=== PATIENT | female | born 1990 | race Caucasian/White ===

== ENCOUNTER 2018-03-10 22:21 | Emergency (ER) | payer MEDICAID ==
[~2018-03-10] VITALS: Ht 167.6 cm; Wt 120.7 kg
[2018-03-10 22:27] VITALS: BP 160/83
[2018-03-10 23:33] LABS: CLARITY,URINE CLEAR (Clear); COLOR,URINE YELLOW (Yellow); GLUCOSE, URINE NEGATIVE (Neg); KETONES,URINE NEGATIVE (Neg); LEUKOCYTE ESTERASE ,URINE NEGATIVE (Neg); NITRITES, URINE NEGATIVE (Neg); OCCULT BLOOD,URINE TRACE-INTACT (Neg); PROTEIN,URINE NEGATIVE (Neg); UROBILINOGEN,URINE 0.2 E.U/dL (0.2-1.0)
[2018-03-10 23:49] LABS: URINE HCG NEGATIVE (NEG)
[2018-03-10 23:58] LABS: UA COLLECTION TYPE NON-SPECIFIED
[2018-03-10 23:59] LABS: MUCUS STRANDS MANY /LPF (Neg); RBC,URINE 0-2 /HPF (0-2); SQUAMOUS EPITHELIAL CELL,UR MANY /LPF (FEW); WBC,URINE 0-4 /HPF (0-4)
[2018-03-11] LABS: BACTERIA,URINE 2+ /HPF (Neg)
[2018-03-11] MEDS ORDERED: proCHLORperazine 10 MG/2 ml inj IM ONE (00:05)
[2018-03-11] MEDS ORDERED: ketorolac tromethamine 15mg/ml inj. IM ONE (00:05)
[2018-03-11] MEDS ORDERED: diphenhydrAMINE 50 mg/ml inj IM ONE (00:05)
== END 2018-03-11 00:43 | disposition home or self-care (01) ==
LOC: ER 22:22
DX: R51 Headache (principal); T43.595A Adverse effect of other antipsychotics and neuroleptics, initial encounter; F12.90 Cannabis use, unspecified, uncomplicated; Y92.89 Other specified places as the place of occurrence of the external cause
CPT/HCPCS: 81001; 81025; 96372; 99284; J0780; J1200; J1885

== ENCOUNTER 2018-11-28 06:32 | Emergency (ER) | payer MEDICAID ==
[~2018-11-28] VITALS: Ht 167.6 cm; Wt 106.0 kg
[~2018-11-28 06:32] MED LIST: NO HOME MEDS
[2018-11-28 07:27] VITALS: BP 118/68
[2018-11-28] MEDS ORDERED: ondansetron 4 MG/5 ML oral solution 5ml CUP PO ONE (07:30)
[2018-11-28] MEDS ORDERED: LORazepam 1 MG tablet PO ONE (07:30)
[2018-11-28] MEDS ORDERED: pantoprazole 40mg Tablet.DR PO ONE (07:30)
== END 2018-11-28 08:07 | disposition home or self-care (01) ==
LOC: ER 06:33
DX: M25.562 Pain in left knee (principal); R11.2 Nausea with vomiting, unspecified; F41.9 Anxiety disorder, unspecified; F31.9 Bipolar disorder, unspecified; F12.90 Cannabis use, unspecified, uncomplicated; F10.99 Alcohol use, unspecified with unspecified alcohol-induced disorder; Y90.9 Presence of alcohol in blood, level not specified
CPT/HCPCS: 73564; 99284; J2405

== ENCOUNTER 2018-12-23 22:02 | Emergency (ER) | payer MEDICAID ==
[~2018-12-23] VITALS: Ht 170.2 cm; Wt 102.5 kg
[2018-12-23 22:09] VITALS: BP 173/95
[2018-12-23] MEDS ORDERED: dexamethasone 4mg tablet PO ONE (22:45)
== END 2018-12-23 22:59 | disposition home or self-care (01) ==
LOC: ER 22:03
DX: J06.9 Acute upper respiratory infection, unspecified (principal); J30.2 Other seasonal allergic rhinitis; F12.90 Cannabis use, unspecified, uncomplicated
CPT/HCPCS: 99282; J8540

== ENCOUNTER 2019-02-13 21:03 | Emergency (ER) | payer MEDICAID ==
[~2019-02-13] VITALS: Ht 167.6 cm; Wt 104.5 kg
[2019-02-13 21:43] LABS: URINE HCG NEGATIVE (NEG)
[2019-02-13 22:09] LABS: CLARITY,URINE SLIGHTLY CLOUDY (Clear); COLOR,URINE ORANGE (Yellow); GLUCOSE, URINE NEGATIVE (Neg); KETONES,URINE TRACE mg/dl (Neg); LEUKOCYTE ESTERASE ,URINE NEGATIVE (Neg); NITRITES, URINE NEGATIVE (Neg); OCCULT BLOOD,URINE MODERATE (Neg); PH,URINE 5.5 (4.8-8.0); PROTEIN,URINE NEGATIVE (Neg); UROBILINOGEN,URINE 0.2 E.U/dL (0.2-1.0)
--- NOTE | 2019-02-13 22:09 | NUR ---
Patient resting comfortably in bed drinking water without any difficulty.
[2019-02-13 22:11] LABS: UA COLLECTION TYPE CLN CATCH MIDSTREAM
[2019-02-13 22:17] LABS: BACTERIA,URINE NONE SEEN /HPF (Neg); CAL OXALATE CRYSTALS 2+ /HPF (NEGATIVE); MUCUS STRANDS MANY /LPF (Neg); RBC,URINE 0-2 /HPF (0-2); SQUAMOUS EPITHELIAL CELL,UR FEW /LPF (FEW); WBC,URINE 0-4 /HPF (0-4)
[2019-02-13] MEDS ORDERED: ondansetron/PF 4mg/2ml inj IV ONE (22:50)
[2019-02-13] MEDS ORDERED: ondansetron 4mg rapidly disintigrating tab PO ONE (23:05)
[2019-02-13 23:13] VITALS: BP 120/55
== END 2019-02-13 23:14 | disposition home or self-care (01) ==
LOC: ER 21:04
DX: E86.0 Dehydration (principal); F41.9 Anxiety disorder, unspecified; F31.9 Bipolar disorder, unspecified; F10.99 Alcohol use, unspecified with unspecified alcohol-induced disorder; F12.90 Cannabis use, unspecified, uncomplicated; Y90.9 Presence of alcohol in blood, level not specified
CPT/HCPCS: 81001; 81025; 99283

== ENCOUNTER 2019-07-22 06:11 | Emergency (ER) | payer MEDICAID ==
[~2019-07-22] VITALS: Ht 167.6 cm; Wt 107.2 kg
[2019-07-22] MEDS ORDERED: ondansetron/PF 4mg/2ml inj IV ONE (06:20)
[2019-07-22] MEDS ORDERED: normal saline 1000ML IV soln IVB ONE (06:20)
[2019-07-22 06:38] LABS: CLARITY,URINE CLEAR (Clear); COLOR,URINE STRAW (Yellow); GLUCOSE, URINE NEGATIVE (Neg); KETONES,URINE NEGATIVE (Neg); LEUKOCYTE ESTERASE ,URINE NEGATIVE (Neg); NITRITES, URINE NEGATIVE (Neg); OCCULT BLOOD,URINE NEGATIVE (Neg); PH,URINE 6.5 (4.8-8.0); PROTEIN,URINE NEGATIVE (Neg); UROBILINOGEN,URINE 0.2 E.U/dL (0.2-1.0)
[2019-07-22 06:39] LABS: URINE HCG NEGATIVE (NEG)
[2019-07-22 06:42] LABS: UA COLLECTION TYPE CLN CATCH MIDSTREAM
[2019-07-22 07:11] LABS: BASOPHILS # (AUTO) 0.1 X10'3 (0-0.2); BASOPHILS % (AUTO) 0.7 % (0-1); EOSINOPHILS # (AUTO) 0.4 X10'3 (0-0.9); EOSINOPHILS % (AUTO) 3.9 % (0-6); HEMATOCRIT 39.7 % (35.0-45.0); HEMOGLOBIN 13.4 g/dl (12.0-16.0); LYMPHOCYTES # (AUTO) 3.1 X10'3 (1.1-4.8); LYMPHOCYTES % (AUTO) 32.9 % (21-51); MEAN CORPUSCULAR HGB CONC 33.7 g/dL (33.0-36.5); MEAN CORPUSCULAR VOLUME 89.1 FL (78-98); MEAN PLATELET VOLUME 7.2 FL (7.4-10.4); MONOCYTES # (AUTO) 0.6 X10'3 (0-0.9); MONOCYTES % (AUTO) 6.6 % (2-12); NEUTROPHILS # (AUTO) 5.2 X10'3 (1.8-7.7); NEUTROPHILS % (AUTO) 55.9 % (42-75); PLATELET COUNT 380 X10'3 (140-440); RED BLOOD COUNT 4.46 X10'6 (4.20-5.60); RED CELL DISTRIBUTION WIDTH 13.1 % (11.5-14.5); WHITE BLOOD COUNT 9.4 X10'3 (4.5-11.0)
[2019-07-22 07:30] LABS: ALANINE AMINOTRANSFERASE 24 U/L (12-78); ALBUMIN 3.2 G/DL (3.4-5.0); ALBUMIN/GLOBULIN RATIO 0.9 (1.1-1.5); ALKALINE PHOSPHATASE 73 IU/L (46-116); ANION GAP 12 (8-16); ASPARTATE AMINO TRANSFERASE 21 U/L (10-37); BILIRUBIN,TOTAL 0.1 MG/DL (0.1-1.0); BLOOD UREA NITROGEN 9 MG/DL (7-18); BUN/CREATININE RATIO 11.3 (6.6-38.0); CALCIUM 8.4 MG/DL (8.5-10.1); CHLORIDE 107 MMOL/L (99-107); GLUCOSE 94 MG/DL (70-104); LIPASE 158 U/L (73-393); POTASSIUM 4.2 MMOL/L (3.5-5.1); SODIUM 144 MMOL/L (135-145); TOTAL CARBON DIOXIDE 24.6 MMOL/L (24-32); TOTAL PROTEIN 6.8 G/DL (6.4-8.2); eGFR 86 ML/MIN
[2019-07-22 08:10] VITALS: BP 114/71
== END 2019-07-22 08:14 | disposition home or self-care (01) ==
LOC: ER 06:12
DX: K52.9 Noninfective gastroenteritis and colitis, unspecified (principal); A05.9 Bacterial foodborne intoxication, unspecified; F41.9 Anxiety disorder, unspecified; F31.9 Bipolar disorder, unspecified; F12.90 Cannabis use, unspecified, uncomplicated; Z72.89 Other problems related to lifestyle; Z91.040 Latex allergy status
CPT/HCPCS: 36415; 80053; 81003; 81025; 83690; 85025; 96361; 96374; 99283; J2405; J7030

== ENCOUNTER 2019-07-24 23:15 | Emergency (ER) | payer MEDICAID ==
[~2019-07-24] VITALS: Ht 167.6 cm; Wt 109.0 kg
[2019-07-24] MEDS ORDERED: normal saline 1000ML IV soln IVB ONE (23:25)
[2019-07-24] MEDS ORDERED: ondansetron/PF 4mg/2ml inj IV ONE (23:25)
[2019-07-24] MEDS ORDERED: morphine 4 MG/ML inj SYRINge IV PRN (23:25)
[2019-07-24 23:59] LABS: BASOPHILS % (AUTO) 0.4 % (0-1); EOSINOPHILS # (AUTO) 0.2 X10'3 (0-0.9); HEMATOCRIT 40.4 % (35.0-45.0); HEMOGLOBIN 13.7 g/dl (12.0-16.0); LYMPHOCYTES # (AUTO) 3.6 X10'3 (1.1-4.8); LYMPHOCYTES % (AUTO) 37.8 % (21-51); MEAN CORPUSCULAR HEMOGLOBIN 29.9 PG (27.0-31.0); MEAN CORPUSCULAR HGB CONC 33.8 g/dL (33.0-36.5); MEAN CORPUSCULAR VOLUME 88.5 FL (78-98); MEAN PLATELET VOLUME 6.8 FL (7.4-10.4); MONOCYTES # (AUTO) 0.6 X10'3 (0-0.9); MONOCYTES % (AUTO) 6.6 % (2-12); NEUTROPHILS # (AUTO) 5.1 X10'3 (1.8-7.7); NEUTROPHILS % (AUTO) 53.2 % (42-75); PLATELET COUNT 406 X10'3 (140-440); RED BLOOD COUNT 4.57 X10'6 (4.20-5.60); RED CELL DISTRIBUTION WIDTH 13.1 % (11.5-14.5); WHITE BLOOD COUNT 9.5 X10'3 (4.5-11.0)
[2019-07-25 00:06] LABS: URINE HCG NEGATIVE (NEG)
[2019-07-25] MEDS ORDERED: normal saline 1000ML IV soln IVB ONE (00:10)
[2019-07-25] MEDS ORDERED: ketorolac trometh. 30mg/ml inj. IV ONE (00:10)
[2019-07-25 00:14] LABS: ALANINE AMINOTRANSFERASE 27 U/L (12-78); ALBUMIN 3.8 G/DL (3.4-5.0); ALKALINE PHOSPHATASE 74 IU/L (46-116); ANION GAP 12 (8-16); ASPARTATE AMINO TRANSFERASE 23 U/L (10-37); BILIRUBIN,TOTAL 0.3 MG/DL (0.1-1.0); BLOOD UREA NITROGEN 11 MG/DL (7-18); BUN/CREATININE RATIO 13.6 (6.6-38.0); CHLORIDE 105 MMOL/L (99-107); CREATININE 0.81 MG/DL (0.40-0.90); GLUCOSE 89 MG/DL (70-104); POTASSIUM 3.7 MMOL/L (3.5-5.1); SODIUM 140 MMOL/L (135-145); TOTAL CARBON DIOXIDE 22.6 MMOL/L (24-32); TOTAL PROTEIN 7.5 G/DL (6.4-8.2); eGFR 85 ML/MIN
[2019-07-25 00:21] LABS: BETA HCG,QUANTITATIVE < 1.0 mIU/ml
[2019-07-25 00:28] LABS: CLARITY,URINE SLIGHTLY CLOUDY (Clear); COLOR,URINE YELLOW (Yellow); GLUCOSE, URINE NEGATIVE (Neg); KETONES,URINE NEGATIVE (Neg); LEUKOCYTE ESTERASE ,URINE NEGATIVE (Neg); NITRITES, URINE NEGATIVE (Neg); OCCULT BLOOD,URINE LARGE (Neg); PROTEIN,URINE TRACE mg/dl (Neg); UROBILINOGEN,URINE 0.2 E.U/dL (0.2-1.0)
[2019-07-25 00:39] LABS: UA COLLECTION TYPE CLN CATCH MIDSTREAM
[2019-07-25 00:48] LABS: BACTERIA,URINE 3+ /HPF (Neg); MUCUS STRANDS MANY /LPF (Neg); RBC,URINE 0-2 /HPF (0-2); SQUAMOUS EPITHELIAL CELL,UR MANY /LPF (FEW); WBC,URINE 0-4 /HPF (0-4)
[2019-07-25] MEDS ORDERED: KETO10TA2 PO (01:40)
[2019-07-25] MEDS ORDERED: ONDA4TAB6 PO (01:40)
[2019-07-25] MEDS ORDERED: HYDR-4353 PO (01:40)
[2019-07-25 02:00] VITALS: BP 128/90
== END 2019-07-25 02:01 | disposition home or self-care (01) ==
LOC: ER 23:16
DX: N20.0 Calculus of kidney (principal); N28.1 Cyst of kidney, acquired; R11.2 Nausea with vomiting, unspecified; F41.9 Anxiety disorder, unspecified; F31.9 Bipolar disorder, unspecified; F12.90 Cannabis use, unspecified, uncomplicated; Z91.040 Latex allergy status; Z79.899 Other long term (current) drug therapy
CPT/HCPCS: 36415; 74176; 80053; 81001; 81025; 84702; 85025; 96361; 96374; 96375; 99284; J1885; J2270; J2405; J7030; 81003

== ENCOUNTER 2019-09-25 05:08 | Emergency (ER) | payer MEDICAID ==
[~2019-09-25] VITALS: Ht 167.6 cm; Wt 110.0 kg
[~2019-09-25 05:08] MED LIST changes: +KETO10TA2 PO; +ONDA4TAB6 PO
[2019-09-25] MEDS ORDERED: ondansetron/PF 4mg/2ml inj IV ONE (05:35)
[2019-09-25] MEDS ORDERED: ketorolac trometh. 30mg/ml inj. IV ONE (05:35)
[2019-09-25] MEDS ORDERED: morphine 4 MG/ML inj SYRINge IV ONE (05:35)
[2019-09-25 05:45] LABS: BASOPHILS % (AUTO) 0.4 % (0-1); EOSINOPHILS # (AUTO) 0.4 X10'3 (0-0.9); EOSINOPHILS % (AUTO) 5.3 % (0-6); HEMATOCRIT 41.7 % (35.0-45.0); HEMOGLOBIN 14.1 g/dl (12.0-16.0); LYMPHOCYTES % (AUTO) 35.3 % (21-51); MEAN CORPUSCULAR HEMOGLOBIN 30.3 PG (27.0-31.0); MEAN CORPUSCULAR HGB CONC 33.8 g/dL (33.0-36.5); MEAN CORPUSCULAR VOLUME 89.9 FL (78-98); MONOCYTES # (AUTO) 0.6 X10'3 (0-0.9); MONOCYTES % (AUTO) 7.2 % (2-12); NEUTROPHILS # (AUTO) 4.4 X10'3 (1.8-7.7); NEUTROPHILS % (AUTO) 51.8 % (42-75); PLATELET COUNT 368 X10'3 (140-440); RED BLOOD COUNT 4.64 X10'6 (4.20-5.60); RED CELL DISTRIBUTION WIDTH 13.4 % (11.5-14.5); WHITE BLOOD COUNT 8.5 X10'3 (4.5-11.0)
[2019-09-25 05:50] LABS: COLOR,URINE YELLOW (Yellow); GLUCOSE, URINE NEGATIVE (Neg); KETONES,URINE NEGATIVE (Neg); LEUKOCYTE ESTERASE ,URINE NEGATIVE (Neg); NITRITES, URINE NEGATIVE (Neg); OCCULT BLOOD,URINE TRACE-INTACT (Neg); PROTEIN,URINE NEGATIVE (Neg); UROBILINOGEN,URINE 0.2 E.U/dL (0.2-1.0)
[2019-09-25 05:52] LABS: URINE HCG NEGATIVE (NEG)
[2019-09-25 05:56] LABS: CLARITY,URINE SLIGHTLY CLOUDY (Clear); PH,URINE 6.5 (4.8-8.0)
[2019-09-25 05:57] LABS: UA COLLECTION TYPE CLN CATCH MIDSTREAM
[2019-09-25 05:58] LABS: ALANINE AMINOTRANSFERASE 84 U/L (12-78); ALBUMIN 4.2 G/DL (3.4-5.0); ALBUMIN/GLOBULIN RATIO 1.3 (1.1-1.5); ALKALINE PHOSPHATASE 109 IU/L (46-116); ANION GAP 11 (8-16); ASPARTATE AMINO TRANSFERASE 43 U/L (10-37); BILIRUBIN,TOTAL 0.4 MG/DL (0.1-1.0); BLOOD UREA NITROGEN 9 MG/DL (7-18); CALCIUM 9.4 MG/DL (8.5-10.1); CHLORIDE 104 MMOL/L (99-107); CREATININE 0.75 MG/DL (0.40-0.90); GLUCOSE 97 MG/DL (70-104); LIPASE 92 U/L (73-393); POTASSIUM 3.8 MMOL/L (3.5-5.1); SODIUM 140 MMOL/L (135-145); TOTAL CARBON DIOXIDE 24.7 MMOL/L (24-32); TOTAL PROTEIN 7.5 G/DL (6.4-8.2); eGFR > 90 ML/MIN
[2019-09-25 06:00] LABS: RBC,URINE 0-2 /HPF (0-2); SQUAMOUS EPITHELIAL CELL,UR MANY /LPF (FEW); WBC,URINE NONE SEEN /HPF (0-4)
[2019-09-25 06:01] LABS: BACTERIA,URINE 2+ /HPF (Neg); MUCUS STRANDS FEW /LPF (Neg)
--- NOTE | 2019-09-25 06:07 | NUR ---
ULTRASOUND IN ROOM.
[2019-09-25 06:27] VITALS: BP 137/91
[2019-09-25] MEDS ORDERED: HYDR-3965 PO (06:34)
== END 2019-09-25 06:40 | disposition home or self-care (01) ==
LOC: ER 05:08
DX: N28.1 Cyst of kidney, acquired (principal); F41.9 Anxiety disorder, unspecified; F31.9 Bipolar disorder, unspecified; F12.90 Cannabis use, unspecified, uncomplicated; Z91.040 Latex allergy status; Z79.899 Other long term (current) drug therapy
CPT/HCPCS: 36415; 76700; 80053; 81001; 81025; 83690; 85025; 93005; 96374; 96375; 99285; J1885; J2270; J2405

== ENCOUNTER 2020-02-06 01:46 | Emergency (ER) | payer MEDICAID ==
[~2020-02-06] VITALS: Ht 167.6 cm; Wt 113.6 kg
[2020-02-06 01:56] VITALS: BP 171/75
[2020-02-06] MEDS ORDERED: LORazepam 2 mg/ml vial IM ONE (02:35)
== END 2020-02-06 02:54 | disposition home or self-care (01) ==
LOC: ER 01:47
DX: F41.0 Panic disorder [episodic paroxysmal anxiety] (principal); F31.9 Bipolar disorder, unspecified; F41.9 Anxiety disorder, unspecified; F12.90 Cannabis use, unspecified, uncomplicated; Z72.89 Other problems related to lifestyle; Z87.442 Personal history of urinary calculi; Z91.040 Latex allergy status; Z79.899 Other long term (current) drug therapy
CPT/HCPCS: 96372; 99283; J2060

== ENCOUNTER 2020-03-18 13:03 | Emergency (ER) | payer MEDICAID ==
[~2020-03-18] VITALS: Ht 167.6 cm; Wt 113.6 kg
[2020-03-18 13:51] LABS: BASOPHILS % (AUTO) 0.4 % (0-1); EOSINOPHILS # (AUTO) 0.3 X10'3 (0-0.9); EOSINOPHILS % (AUTO) 3.8 % (0-6); HEMATOCRIT 39.6 % (35.0-45.0); HEMOGLOBIN 13.1 g/dl (12.0-16.0); LYMPHOCYTES # (AUTO) 2.4 X10'3 (1.1-4.8); LYMPHOCYTES % (AUTO) 34.3 % (21-51); MEAN CORPUSCULAR HEMOGLOBIN 29.8 PG (27.0-31.0); MEAN CORPUSCULAR HGB CONC 33.1 g/dL (33.0-36.5); MEAN CORPUSCULAR VOLUME 90.1 FL (78-98); MEAN PLATELET VOLUME 7.1 FL (7.4-10.4); MONOCYTES # (AUTO) 0.4 X10'3 (0-0.9); MONOCYTES % (AUTO) 6.2 % (2-12); NEUTROPHILS # (AUTO) 3.9 X10'3 (1.8-7.7); NEUTROPHILS % (AUTO) 55.3 % (42-75); PLATELET COUNT 368 X10'3 (140-440); RED BLOOD COUNT 4.39 X10'6 (4.20-5.60); RED CELL DISTRIBUTION WIDTH 13.1 % (11.5-14.5); WHITE BLOOD COUNT 7.1 X10'3 (4.5-11.0)
[2020-03-18 14:02] LABS: ALANINE AMINOTRANSFERASE 23 U/L (12-78); ALBUMIN 3.3 G/DL (3.4-5.0); ALBUMIN/GLOBULIN RATIO 0.9 (1.1-1.5); ALKALINE PHOSPHATASE 71 IU/L (46-116); ANION GAP 8 (8-16); ASPARTATE AMINO TRANSFERASE 28 U/L (10-37); BILIRUBIN,TOTAL 0.3 MG/DL (0.1-1.0); BLOOD UREA NITROGEN 9 MG/DL (7-18); BUN/CREATININE RATIO 12.2 (6.6-38.0); CALCIUM 8.8 MG/DL (8.5-10.1); CHLORIDE 104 MMOL/L (99-107); CREATININE 0.74 MG/DL (0.40-0.90); GLUCOSE 92 MG/DL (70-104); SODIUM 138 MMOL/L (135-145); TOTAL CARBON DIOXIDE 26.4 MMOL/L (24-32); TOTAL PROTEIN 6.9 G/DL (6.4-8.2); eGFR > 90 ML/MIN
[2020-03-18 14:22] LABS: URINE HCG NEGATIVE (NEG)
[2020-03-18] MEDS ORDERED: ketorolac tromethamine 15mg/ml inj. IM ONE (16:15)
[2020-03-18 17:01] VITALS: BP 145/91
== END 2020-03-18 17:03 | disposition home or self-care (01) ==
LOC: ER 13:03
DX: R07.89 Other chest pain (principal); R06.02 Shortness of breath; F41.9 Anxiety disorder, unspecified; F31.9 Bipolar disorder, unspecified; F12.90 Cannabis use, unspecified, uncomplicated; Z87.442 Personal history of urinary calculi; Z72.89 Other problems related to lifestyle; Z91.040 Latex allergy status; Z79.899 Other long term (current) drug therapy
CPT/HCPCS: 36415; 71045; 80053; 81025; 85025; 85379; 93005; 99285

== ENCOUNTER 2020-05-07 16:06 | Emergency (ER) | payer MEDICAID ==
[~2020-05-07] VITALS: Ht 167.6 cm; Wt 109.1 kg
[2020-05-07 16:11] VITALS: BP 154/78
== END 2020-05-07 19:10 | disposition left against medical advice (07) ==
LOC: ER 16:07
DX: F41.9 Anxiety disorder, unspecified (principal); Z53.21 Procedure and treatment not carried out due to patient leaving prior to being seen by health care provider

== ENCOUNTER 2020-07-05 16:32 | Emergency (ER) | payer MEDICAID ==
[~2020-07-05] VITALS: Ht 167.6 cm; Wt 109.0 kg
[2020-07-05 16:41] VITALS: BP 147/67
[2020-07-05 17:16] LABS: BASOPHILS # (AUTO) 0.1 X10'3 (0-0.2); BASOPHILS % (AUTO) 0.7 % (0-1); EOSINOPHILS # (AUTO) 0.3 X10'3 (0-0.9); HEMATOCRIT 40.6 % (35.0-45.0); HEMOGLOBIN 13.5 g/dl (12.0-16.0); LYMPHOCYTES # (AUTO) 3.4 X10'3 (1.1-4.8); LYMPHOCYTES % (AUTO) 32.6 % (21-51); MEAN CORPUSCULAR HEMOGLOBIN 30.4 PG (27.0-31.0); MEAN CORPUSCULAR HGB CONC 33.2 g/dL (33.0-36.5); MEAN CORPUSCULAR VOLUME 91.6 FL (78-98); MEAN PLATELET VOLUME 7.1 FL (7.4-10.4); MONOCYTES # (AUTO) 0.6 X10'3 (0-0.9); MONOCYTES % (AUTO) 6.1 % (2-12); NEUTROPHILS # (AUTO) 6.1 X10'3 (1.8-7.7); NEUTROPHILS % (AUTO) 57.6 % (42-75); PLATELET COUNT 364 X10'3 (140-440); RED BLOOD COUNT 4.43 X10'6 (4.20-5.60); RED CELL DISTRIBUTION WIDTH 13.4 % (11.5-14.5); WHITE BLOOD COUNT 10.5 X10'3 (4.5-11.0)
[2020-07-05 17:20] LABS: URINE HCG NEGATIVE (NEG)
[2020-07-05 17:23] LABS: CLARITY,URINE SLIGHTLY CLOUDY (Clear); COLOR,URINE STRAW (Yellow); GLUCOSE, URINE NEGATIVE (Neg); KETONES,URINE NEGATIVE (Neg); LEUKOCYTE ESTERASE ,URINE NEGATIVE (Neg); NITRITES, URINE NEGATIVE (Neg); OCCULT BLOOD,URINE MODERATE (Neg); PH,URINE 6.5 (4.8-8.0); PROTEIN,URINE NEGATIVE (Neg); UROBILINOGEN,URINE 0.2 E.U/dL (0.2-1.0)
[2020-07-05 17:27] LABS: UA COLLECTION TYPE VOIDED
[2020-07-05 17:33] LABS: ALANINE AMINOTRANSFERASE 26 U/L (12-78); ALBUMIN 3.6 G/DL (3.4-5.0); ALKALINE PHOSPHATASE 74 IU/L (46-116); ANION GAP 10 (8-16); ASPARTATE AMINO TRANSFERASE 20 U/L (10-37); BILIRUBIN,TOTAL 0.2 MG/DL (0.1-1.0); BLOOD UREA NITROGEN 10 MG/DL (7-18); BUN/CREATININE RATIO 13.2 (6.6-38.0); CALCIUM 9.3 MG/DL (8.5-10.1); CHLORIDE 103 MMOL/L (99-107); CREATININE 0.76 MG/DL (0.40-0.90); GLUCOSE 85 MG/DL (70-104); LIPASE 113 U/L (73-393); POTASSIUM 3.6 MMOL/L (3.5-5.1); SODIUM 140 MMOL/L (135-145); TOTAL CARBON DIOXIDE 27.2 MMOL/L (24-32); TOTAL PROTEIN 7.3 G/DL (6.4-8.2); eGFR > 90 ML/MIN
[2020-07-05 17:38] LABS: BACTERIA,URINE 3+ /HPF (Neg); RBC,URINE 0-2 /HPF (0-2); SQUAMOUS EPITHELIAL CELL,UR MODERATE /LPF (FEW); WBC CLUMPS,URINE FEW /HPF (NEGATIVE); WBC,URINE 0-4 /HPF (0-4)
[2020-07-05 18:08] LABS: HCG SERUM QL NEGATIVE
[2020-07-05] MEDS ORDERED: morphine 4 MG/ML inj SYRINge IV ONE (18:55)
[2020-07-05] MEDS ORDERED: ketorolac trometh. 30mg/ml inj. IV ONE (18:55)
[2020-07-05] MEDS ORDERED: normal saline 1000ml 1,000 ML IV ONE (18:55)
[2020-07-05] MEDS ORDERED: ONDA4TAB6 PO (19:18)
[2020-07-05] MEDS ORDERED: HYDR-3965 PO (19:18)
[2020-07-05] MEDS ORDERED: FLO0.4C PO (19:18)
== END 2020-07-05 20:01 | disposition home or self-care (01) ==
LOC: ER 16:33
DX: N20.0 Calculus of kidney (principal); R10.31 Right lower quadrant pain; F41.9 Anxiety disorder, unspecified; F31.9 Bipolar disorder, unspecified; F12.90 Cannabis use, unspecified, uncomplicated; Z72.89 Other problems related to lifestyle; Z87.442 Personal history of urinary calculi; Z88.1 Allergy status to other antibiotic agents; Z91.040 Latex allergy status; Z79.899 Other long term (current) drug therapy
CPT/HCPCS: 36415; 74176; 80053; 81001; 81025; 83690; 84703; 85025; 87088; 96374; 96375; 99284; J1885; J2270; J7030

== ENCOUNTER 2020-07-24 09:19 | Emergency (ER) | payer MEDICAID ==
[~2020-07-24] VITALS: Ht 167.6 cm; Wt 111.4 kg
[2020-07-24] MEDS ORDERED: dexamethasone sod phosphate 10mg/ml inj IV STA (09:26)
[2020-07-24] MEDS ORDERED: metoclopramide 5 mg/ml inj IV ONE (09:30)
[2020-07-24] MEDS ORDERED: normal saline 1000ML IV soln IVB ONE (09:30)
[2020-07-24] MEDS ORDERED: ketorolac trometh. 30mg/ml inj. IV ONE (10:15)
[2020-07-24] MEDS ORDERED: LORazepam 2 mg/ml vial IV ONE (10:35)
[2020-07-24 10:59] VITALS: BP 117/74
== END 2020-07-24 11:01 | disposition home or self-care (01) ==
LOC: ER 09:19
DX: R51.9 Headache, unspecified (principal); R11.0 Nausea; F41.9 Anxiety disorder, unspecified; F31.9 Bipolar disorder, unspecified; F12.90 Cannabis use, unspecified, uncomplicated; Z72.89 Other problems related to lifestyle; Z87.442 Personal history of urinary calculi; Z88.1 Allergy status to other antibiotic agents; Z79.899 Other long term (current) drug therapy
CPT/HCPCS: 70450; 96361; 96374; 96375; 99284; J1100; J1885; J2060; J2765; J7030

== ENCOUNTER 2020-12-10 13:21 | Emergency (ER) | payer MEDICAID ==
[~2020-12-10] VITALS: Ht 162.6 cm; Wt 113.6 kg
[2020-12-10 15:52] LABS: URINE HCG NEGATIVE (NEG)
[2020-12-10 15:56] LABS: CLARITY,URINE SLIGHTLY CLOUDY (Clear); COLOR,URINE STRAW (Yellow); GLUCOSE, URINE NEGATIVE (Neg); KETONES,URINE NEGATIVE (Neg); LEUKOCYTE ESTERASE ,URINE NEGATIVE (Neg); NITRITES, URINE NEGATIVE (Neg); OCCULT BLOOD,URINE SMALL (Neg); PH,URINE 5.5 (4.8-8.0); PROTEIN,URINE NEGATIVE (Neg); UROBILINOGEN,URINE 0.2 E.U/dL (0.2-1.0)
[2020-12-10 15:57] LABS: UA COLLECTION TYPE CLN CATCH MIDSTREAM
[2020-12-10 16:07] LABS: MUCUS STRANDS MODERATE /LPF (Neg); SQUAMOUS EPITHELIAL CELL,UR MANY /LPF (FEW)
[2020-12-10 16:12] LABS: BACTERIA,URINE 2+ /HPF (Neg); RBC,URINE 0-2 /HPF (0-2)
[2020-12-10] MEDS ORDERED: NITR100C PO (16:26)
[2020-12-10 17:00] VITALS: BP 148/90
== END 2020-12-10 17:00 | disposition home or self-care (01) ==
LOC: ER 13:21
DX: N30.00 Acute cystitis without hematuria (principal); R42 Dizziness and giddiness; R11.0 Nausea; R06.02 Shortness of breath; F31.9 Bipolar disorder, unspecified; F12.90 Cannabis use, unspecified, uncomplicated; Z87.442 Personal history of urinary calculi; Z72.89 Other problems related to lifestyle; Z88.8 Allergy status to other drugs, medicaments and biological substances; Z91.040 Latex allergy status; Z79.899 Other long term (current) drug therapy
CPT/HCPCS: 81001; 81025; 93005; 99284

== ENCOUNTER 2020-12-14 15:23 | Emergency (ER) | payer MEDICAID ==
[~2020-12-14] VITALS: Ht 167.6 cm; Wt 113.6 kg
[~2020-12-14 15:23] MED LIST changes: +NITR100C PO
[2020-12-14 15:55] VITALS: BP 127/89
[2020-12-14 16:21] LABS: URINE HCG NEGATIVE (NEG)
[2020-12-14 16:26] LABS: CLARITY,URINE SLIGHTLY CLOUDY (Clear); COLOR,URINE YELLOW (Yellow); GLUCOSE, URINE NEGATIVE (Neg); KETONES,URINE NEGATIVE (Neg); LEUKOCYTE ESTERASE ,URINE NEGATIVE (Neg); NITRITES, URINE NEGATIVE (Neg); OCCULT BLOOD,URINE MODERATE (Neg); PH,URINE 6.5 (4.8-8.0); PROTEIN,URINE NEGATIVE (Neg); UROBILINOGEN,URINE 0.2 E.U/dL (0.2-1.0)
[2020-12-14 16:28] LABS: UA COLLECTION TYPE CLN CATCH MIDSTREAM
[2020-12-14 16:32] LABS: BACTERIA,URINE 1+ /HPF (Neg); MUCUS STRANDS NONE SEEN /LPF (Neg); RBC,URINE 0-2 /HPF (0-2); SQUAMOUS EPITHELIAL CELL,UR MODERATE /LPF (FEW); WBC,URINE 0-4 /HPF (0-4)
[2020-12-14] MEDS ORDERED: ketorolac tromethamine 15mg/ml inj. IM ONE (16:55)
[2020-12-14] MEDS ORDERED: CefTRIAXone 1000mg IM Kit (w/lidocaine diluent) IM ONE (16:55)
[2020-12-14] MEDS ORDERED: CEPH-585 PO (16:57)
== END 2020-12-14 18:16 | disposition home or self-care (01) ==
LOC: ER 15:24
DX: N10 Acute pyelonephritis (principal); R11.10 Vomiting, unspecified; R10.84 Generalized abdominal pain; F41.9 Anxiety disorder, unspecified; F31.9 Bipolar disorder, unspecified; F12.90 Cannabis use, unspecified, uncomplicated; Z87.442 Personal history of urinary calculi; Z72.89 Other problems related to lifestyle; Z88.1 Allergy status to other antibiotic agents; Z79.899 Other long term (current) drug therapy
CPT/HCPCS: 76770; 81001; 81025; 96372; 99284; J0696; J1885

== ENCOUNTER 2020-12-17 13:35 | Emergency (ER) | payer MEDICAID ==
[~2020-12-17] VITALS: Ht 167.6 cm; Wt 114.4 kg
[~2020-12-17 13:35] MED LIST changes: +CEPH-585 PO
[2020-12-17 14:30] LABS: BASOPHILS % (AUTO) 0.3 % (0-1); EOSINOPHILS # (AUTO) 0.2 X10'3 (0-0.9); EOSINOPHILS % (AUTO) 2.1 % (0-6); HEMATOCRIT 41.2 % (35.0-45.0); HEMOGLOBIN 13.6 g/dl (12.0-16.0); LYMPHOCYTES # (AUTO) 2.5 X10'3 (1.1-4.8); LYMPHOCYTES % (AUTO) 30.9 % (21-51); MEAN CORPUSCULAR HEMOGLOBIN 30.2 PG (27.0-31.0); MEAN CORPUSCULAR VOLUME 91.5 FL (78-98); MEAN PLATELET VOLUME 7.1 FL (7.4-10.4); MONOCYTES # (AUTO) 0.5 X10'3 (0-0.9); NEUTROPHILS % (AUTO) 60.7 % (42-75); PLATELET COUNT 349 X10'3 (140-440); RED CELL DISTRIBUTION WIDTH 13.2 % (11.5-14.5); WHITE BLOOD COUNT 8.2 X10'3 (4.5-11.0)
[2020-12-17 14:40] LABS: PARTIAL THROMBOPLASTIN TIME 26 SECONDS (22-32)
[2020-12-17 14:43] LABS: ALANINE AMINOTRANSFERASE 31 U/L (12-78); ALBUMIN 3.7 G/DL (3.4-5.0); ALKALINE PHOSPHATASE 84 IU/L (46-116); ANION GAP 10 (8-16); ASPARTATE AMINO TRANSFERASE 22 U/L (10-37); BILIRUBIN,TOTAL 0.4 MG/DL (0.1-1.0); BLOOD UREA NITROGEN 11 MG/DL (7-18); BUN/CREATININE RATIO 14.9 (6.6-38.0); CALCIUM 8.7 MG/DL (8.5-10.1); CHLORIDE 103 MMOL/L (99-107); CREATININE 0.74 MG/DL (0.40-0.90); GLUCOSE 85 MG/DL (70-104); LIPASE 57 U/L (73-393); MAGNESIUM 2.1 MG/DL (1.5-2.4); SODIUM 139 MMOL/L (135-145); TOTAL CARBON DIOXIDE 26.1 MMOL/L (24-32); TOTAL PROTEIN 7.5 G/DL (6.4-8.2); eGFR > 90 ML/MIN
--- NOTE | 2020-12-17 18:41 | NUR ---
PT STATES AMOUNT OF BLOOD UNKNOWN BUT STATES DIZZINESS AND NAUSEA TODAY
--- NOTE | 2020-12-17 18:41 | NUR ---
PT STATES SHE WOKE UP AT 4 AM SCREAMING WITH BRIGHT RED BLOOD POORING OUT VAGINA. PT STATES SHE HAD DIAGNOSIS OF OVARIAN CYST RECENTLY WELL KIDNEY INFECTION TO RIGHT SIDE.
[2020-12-17 19:05] LABS: ETHANOL < 0.010 GM/DL (0.0-0.010)
[2020-12-17 19:25] LABS: URINE HCG NEGATIVE (NEG)
[2020-12-17 19:28] LABS: CLARITY,URINE SLIGHTLY CLOUDY (Clear); COLOR,URINE YELLOW (Yellow); GLUCOSE, URINE NEGATIVE (Neg); KETONES,URINE NEGATIVE (Neg); LEUKOCYTE ESTERASE ,URINE NEGATIVE (Neg); NITRITES, URINE NEGATIVE (Neg); OCCULT BLOOD,URINE MODERATE (Neg); PH,URINE 5.5 (4.8-8.0); PROTEIN,URINE NEGATIVE (Neg); UROBILINOGEN,URINE 0.2 E.U/dL (0.2-1.0)
[2020-12-17 19:29] LABS: UA COLLECTION TYPE CLN CATCH MIDSTREAM
[2020-12-17 19:37] LABS: AMORPHOUS URATES 1+; BACTERIA,URINE NONE SEEN /HPF (Neg); RBC,URINE NONE SEEN /HPF (0-2); SQUAMOUS EPITHELIAL CELL,UR NONE SEEN /LPF (FEW); WBC,URINE NONE SEEN /HPF (0-4)
[2020-12-17 19:43] LABS: URINE AMPHETAMINE SCREEN NEGATIVE (Neg); URINE BARBITUATE SCREEN NEGATIVE (Neg); URINE BENZODIAZEPINES SCREEN NEGATIVE (Neg); URINE CANNABINOID SCREEN POSITIVE (Neg); URINE COCAINE SCREEN NEGATIVE (Neg); URINE METHADONE SCREEN NEGATIVE (Neg); URINE OPIATE SCREEN NEGATIVE (Neg); URINE PHENCYCLIDINE SCREEN NEGATIVE (Neg)
[2020-12-17] MEDS ORDERED: naproxen 500mg tablet PO ONE (20:10)
[2020-12-17 20:30] VITALS: BP 142/88
== END 2020-12-17 20:32 | disposition home or self-care (01) ==
LOC: ER 13:35
DX: R10.31 Right lower quadrant pain (principal); Z87.442 Personal history of urinary calculi; F31.9 Bipolar disorder, unspecified; F12.10 Cannabis abuse, uncomplicated; Z88.8 Allergy status to other drugs, medicaments and biological substances; Z79.899 Other long term (current) drug therapy; Z91.040 Latex allergy status
CPT/HCPCS: 36415; 80053; 80305; 80320; 81001; 81025; 83690; 83735; 85025; 85610; 85730; 99284

== ENCOUNTER 2021-03-22 19:58 | Emergency (ER) | payer MEDICAID ==
[~2021-03-22] VITALS: Ht 167.6 cm; Wt 115.0 kg
[~2021-03-22 19:58] MED LIST changes: -CEPH-585 PO
[2021-03-22 20:19] VITALS: BP 129/79
[2021-03-22 20:27] LABS: BASOPHILS % (AUTO) 0.4 % (0-1); EOSINOPHILS # (AUTO) 0.3 X10'3 (0-0.9); EOSINOPHILS % (AUTO) 3.6 % (0-6); HEMATOCRIT 40.4 % (35.0-45.0); HEMOGLOBIN 13.8 g/dl (12.0-16.0); LYMPHOCYTES # (AUTO) 3.2 X10'3 (1.1-4.8); LYMPHOCYTES % (AUTO) 39.8 % (21-51); MEAN CORPUSCULAR HEMOGLOBIN 30.4 PG (27.0-31.0); MEAN CORPUSCULAR VOLUME 89.4 FL (78-98); MEAN PLATELET VOLUME 6.9 FL (7.4-10.4); MONOCYTES # (AUTO) 0.6 X10'3 (0-0.9); MONOCYTES % (AUTO) 7.3 % (2-12); NEUTROPHILS % (AUTO) 48.9 % (42-75); PLATELET COUNT 333 X10'3 (140-440); RED BLOOD COUNT 4.52 X10'6 (4.20-5.60); RED CELL DISTRIBUTION WIDTH 12.7 % (11.5-14.5); WHITE BLOOD COUNT 8.1 X10'3 (4.5-11.0)
[2021-03-22] MEDS ORDERED: ondansetron 4mg rapidly disintigrating tab PO ONE (20:35)
[2021-03-22] MEDS ORDERED: ketorolac trometh. 30mg/ml inj. IM ONE (20:35)
[2021-03-22] MEDS ORDERED: ketorolac trometh inj. 60 MG/2 ML VIAL IM ONE (20:35)
[2021-03-22 20:36] LABS: URINE HCG NEGATIVE (NEG)
[2021-03-22 20:49] LABS: ALANINE AMINOTRANSFERASE 33 U/L (12-78); ALBUMIN 3.5 G/DL (3.4-5.0); ALBUMIN/GLOBULIN RATIO 0.9 (1.1-1.5); ALKALINE PHOSPHATASE 84 IU/L (46-116); ANION GAP 11 (8-16); ASPARTATE AMINO TRANSFERASE 23 U/L (10-37); BILIRUBIN,TOTAL 0.3 MG/DL (0.1-1.0); BLOOD UREA NITROGEN 9 MG/DL (7-18); BUN/CREATININE RATIO 10.8 (6.6-38.0); CHLORIDE 109 MMOL/L (99-107); CREATININE 0.83 MG/DL (0.40-0.90); GLUCOSE 104 MG/DL (70-104); LIPASE 107 U/L (73-393); POTASSIUM 3.7 MMOL/L (3.5-5.1); SODIUM 144 MMOL/L (135-145); TOTAL CARBON DIOXIDE 24.4 MMOL/L (24-32); TOTAL PROTEIN 7.2 G/DL (6.4-8.2); eGFR 81 ML/MIN
[2021-03-22 21:03] LABS: UA COLLECTION TYPE CLN CATCH MIDSTREAM
[2021-03-22 21:04] LABS: CLARITY,URINE SLIGHTLY CLOUDY (Clear); COLOR,URINE STRAW (Yellow)
[2021-03-22 21:07] LABS: GLUCOSE, URINE NEGATIVE (Neg); NITRITES, URINE NEGATIVE (Neg)
[2021-03-22 21:09] LABS: LEUKOCYTE ESTERASE ,URINE TRACE (Neg); UROBILINOGEN,URINE 0.2 E.U/dL (0.2-1.0)
[2021-03-22 21:10] LABS: OCCULT BLOOD,URINE TRACE-INTACT (Neg); PROTEIN,URINE NEGATIVE (Neg)
[2021-03-22 21:11] LABS: KETONES,URINE NEGATIVE (Neg)
[2021-03-22 21:18] LABS: MUCUS STRANDS NONE SEEN /LPF (Neg); SQUAMOUS EPITHELIAL CELL,UR MANY /LPF (FEW); WBC,URINE 0-4 /HPF (0-4)
[2021-03-22 21:19] LABS: RBC,URINE 0-2 /HPF (0-2)
[2021-03-22 21:20] LABS: AMORPHOUS PHOSPHATES 2+; BACTERIA,URINE 5+ /HPF (Neg)
[2021-03-22] MEDS ORDERED: sucralfate 1gm/10ml UD suspension PO STA (21:43)
[2021-03-22] MEDS ORDERED: proCHLORperazine 10 MG/2 ml inj IV ONE (21:45)
[2021-03-22] MEDS ORDERED: LIDOcaine Viscous 15ml cup MM ONE (21:45)
[2021-03-22] MEDS ORDERED: morphine 4 MG/ML inj SYRINge IV ONE (21:45)
[2021-03-22] MEDS ORDERED: mag hydrox/Alum hydrox/simeth 30ml oral suspension PO ONE (21:45)
[2021-03-22] MEDS ORDERED: SUCR1TAB34 PO (22:09)
[2021-03-22] MEDS ORDERED: sucralfate 1 gm tablet PO STA (22:36)
== END 2021-03-23 01:23 | disposition home or self-care (01) ==
LOC: ER 19:59
DX: R10.11 Right upper quadrant pain (principal); R11.10 Vomiting, unspecified; R19.7 Diarrhea, unspecified; F41.9 Anxiety disorder, unspecified; F31.9 Bipolar disorder, unspecified; F12.90 Cannabis use, unspecified, uncomplicated; Z87.442 Personal history of urinary calculi; Z87.440 Personal history of urinary (tract) infections; Z72.89 Other problems related to lifestyle; Z88.1 Allergy status to other antibiotic agents; Z91.040 Latex allergy status; Z79.899 Other long term (current) drug therapy
CPT/HCPCS: 36415; 80053; 81001; 81025; 83690; 85025; 96372; 96374; 96375; 99284; J0780; J1885; J2270

== ENCOUNTER 2021-07-13 15:28 | Emergency (ER) | payer MEDICAID ==
[~2021-07-13] VITALS: Ht 167.6 cm; Wt 118.2 kg
[~2021-07-13 15:28] MED LIST changes: +SUCR1TAB34 PO
[2021-07-13] MEDS ORDERED: DOXY100C77 PO (18:13)
[2021-07-13] MEDS ORDERED: HYDROcodone/acetaminophen 10/325mg tab PO ONE (19:15)
[2021-07-13] MEDS ORDERED: LIDOcaine 1% W/epiNEPHrine 1:200,000 10ml vial IJ ONE (20:50)
[2021-07-13] MEDS ORDERED: LIDOcaine 1% w/EPI 1:100,000 30ml vial (MDV) IJ ONE (20:55)
[2021-07-13] MEDS ORDERED: AMOX-117 PO (23:08)
[2021-07-13] MEDS ORDERED: amox tr/potassium clavulanate 875/125mg TAB PO ONE (23:10)
[2021-07-13 23:35] VITALS: BP 145/87
== END 2021-07-13 23:39 | disposition home or self-care (01) ==
LOC: ER 15:28
DX: K61.1 Rectal abscess (principal); F12.90 Cannabis use, unspecified, uncomplicated; K76.9 Liver disease, unspecified; Z87.440 Personal history of urinary (tract) infections; Z87.442 Personal history of urinary calculi; Z85.3 Personal history of malignant neoplasm of breast; Z87.891 Personal history of nicotine dependence; Z72.89 Other problems related to lifestyle; Z56.0 Unemployment, unspecified; Z88.8 Allergy status to other drugs, medicaments and biological substances; Z91.040 Latex allergy status; Z79.2 Long term (current) use of antibiotics; Z79.899 Other long term (current) drug therapy
CPT/HCPCS: 46040; 74176; 99284

== ENCOUNTER 2022-02-01 14:35 | Emergency (ER) | payer MEDICAID ==
[~2022-02-01] VITALS: Ht 167.6 cm; Wt 115.0 kg
[2022-02-01 14:56] VITALS: BP 125/80
[2022-02-01] MEDS ORDERED: HYDROcodone/acetaminophen 10/325mg tab PO ONE (15:25)
[2022-02-01] MEDS ORDERED: TRAM50TA2 PO (15:30)
== END 2022-02-01 15:55 | disposition home or self-care (01) ==
LOC: ER 14:36
DX: S93.492A Sprain of other ligament of left ankle, initial encounter (principal); F31.9 Bipolar disorder, unspecified; F12.10 Cannabis abuse, uncomplicated; Z59.00 Homelessness unspecified; Z87.448 Personal history of other diseases of urinary system; W18.39XA Other fall on same level, initial encounter; Y93.89 Activity, other specified; Y92.89 Other specified places as the place of occurrence of the external cause; Y99.8 Other external cause status
CPT/HCPCS: 29515; 99283; L4360; A6446

== ENCOUNTER 2023-02-19 13:19 | Emergency (ER) | payer MEDICAID ==
[~2023-02-19] VITALS: Ht 167.6 cm; Wt 100.0 kg
[~2023-02-19 13:19] MED LIST changes: +TRAM50TA2 PO
[2023-02-19 13:21] VITALS: TEMP 96.4
[2023-02-19] MEDS ORDERED: ketorolac tromethamine 15mg/ml inj. IV ONE ×2 (13:40→16:15)
[2023-02-19] MEDS ORDERED: ondansetron/PF 4mg/2ml inj IV ONE (13:40)
[2023-02-19] MEDS ORDERED: morphine 4 MG/ML inj SYRINge IV ONE ×3 (13:40→16:15)
[2023-02-19] MEDS ORDERED: normal saline 1000ml 1,000 ML IV ONE ×2 (13:50→14:55)
--- NOTE | 2023-02-19 14:04 | NUR ---
IV TORADOL AND ZOFRAN ADMINISTERED BY ER PROVIDER HEBERT TOUSSAINT
[2023-02-19 14:45] LABS: BASOPHILS % (AUTO) 0.3 % (0-1); EOSINOPHILS # (AUTO) 0.3 X10'3 (0-0.9); EOSINOPHILS % (AUTO) 3.9 % (0-6); HEMATOCRIT 38.1 % (35.0-45.0); HEMOGLOBIN 12.7 g/dl (12.0-16.0); LYMPHOCYTES # (AUTO) 2.1 X10'3 (1.1-4.8); LYMPHOCYTES % (AUTO) 28.6 % (21-51); MEAN CORPUSCULAR HEMOGLOBIN 31.6 PG (27.0-31.0); MEAN CORPUSCULAR HGB CONC 33.5 g/dL (33.0-36.5); MEAN CORPUSCULAR VOLUME 94.4 FL (78-98); MEAN PLATELET VOLUME 7.5 FL (7.4-10.4); MONOCYTES # (AUTO) 0.5 X10'3 (0-0.9); MONOCYTES % (AUTO) 7.1 % (2-12); NEUTROPHILS # (AUTO) 4.4 X10'3 (1.8-7.7); NEUTROPHILS % (AUTO) 60.1 % (42-75); PLATELET COUNT 356 X10'3 (140-440); RED BLOOD COUNT 4.04 X10'6 (4.20-5.60); RED CELL DISTRIBUTION WIDTH 12.8 % (11.5-14.5); WHITE BLOOD COUNT 7.4 X10'3 (4.5-11.0)
[2023-02-19 14:56] LABS: URINE HCG NEGATIVE (NEG)
[2023-02-19 14:58] LABS: BILIRUBIN,URINE NEGATIVE (Neg); CLARITY,URINE SLIGHTLY CLOUDY (Clear); COLOR,URINE YELLOW (Yellow); GLUCOSE, URINE NEGATIVE (Neg); KETONES,URINE NEGATIVE (Neg); LEUKOCYTE ESTERASE ,URINE NEGATIVE (Neg); NITRITES, URINE NEGATIVE (Neg); OCCULT BLOOD,URINE SMALL (Neg); PROTEIN,URINE NEGATIVE (Neg); UROBILINOGEN,URINE 0.2 E.U/dL (0.2-1.0)
[2023-02-19 15:03] LABS: MUCUS STRANDS FEW /LPF (Neg); SQUAMOUS EPITHELIAL CELL,UR MODERATE /LPF (FEW); UA COLLECTION TYPE CLN CATCH MIDSTREAM
--- NOTE | 2023-02-19 15:03 | NUR ---
Notified provider, pain unrelieved, pt. now agrees to morphine. No imaging ordered now, hx renal stones.
[2023-02-19 15:04] LABS: BACTERIA,URINE 1+ /HPF (Neg); TRANSITIONAL EPI CELLS,URINE FEW /HPF; WBC,URINE 0-4 /HPF (0-4)
[2023-02-19 15:10] LABS: ALANINE AMINOTRANSFERASE 27 U/L (12-78); ALBUMIN 3.2 G/DL (3.4-5.0); ALKALINE PHOSPHATASE 54 IU/L (46-116); ANION GAP 8 (8-16); ASPARTATE AMINO TRANSFERASE 20 U/L (10-37); BILIRUBIN,TOTAL 0.3 MG/DL (0.1-1.0); BLOOD UREA NITROGEN 10 MG/DL (7-18); BUN/CREATININE RATIO 10.4 (10.0-20.0); CALCIUM 8.7 MG/DL (8.5-10.1); CHLORIDE 107 MMOL/L (99-107); CREATININE 0.96 MG/DL (0.40-0.90); GLUCOSE 95 MG/DL (70-104); POTASSIUM 3.9 MMOL/L (3.5-5.1); SODIUM 137 MMOL/L (135-145); TOTAL CARBON DIOXIDE 21.9 MMOL/L (24-32); TOTAL PROTEIN 6.4 G/DL (6.4-8.2); eCRCL 79 ML/MIN; eGFR 68 ML/MIN
--- NOTE | 2023-02-19 15:15 | NUR ---
Pt to radiology by wheelchair. Pain decreased after morphine to mild, no further urges to move constantly to relieve her pain. No N/V.
[2023-02-19 16:49] VITALS: BP 127/81; PULSE 100; RESP 18; O2SAT 100
[2023-02-19] MEDS ORDERED: IBUP-1986 PO (17:22)
[2023-02-19] MEDS ORDERED: ONDA4TAB12 PO (17:22)
[2023-02-19] MEDS ORDERED: FLO0.4C PO (17:22)
[2023-02-19 17:54] LABS: HCG SERUM QL NEGATIVE
--- NOTE | 2023-02-19 18:06 | NUR ---
vitals freezing and unable to document on flow sheet 125/87 bp 74 hr 97 o2 and 18 rr
== END 2023-02-19 18:09 | disposition home or self-care (01) ==
LOC: ER 13:19
DX: N20.0 Calculus of kidney (principal); F31.9 Bipolar disorder, unspecified; F12.10 Cannabis abuse, uncomplicated; Z88.8 Allergy status to other drugs, medicaments and biological substances; Z91.040 Latex allergy status; Z79.899 Other long term (current) drug therapy
CPT/HCPCS: 36415; 74176; 80053; 81001; 81025; 83690; 84703; 85025; 96361; 96374; 96375; 96376; 99285; J1885; J2270; J7030